=== PATIENT | female | born 2000 | race African-American/Black ===

== ENCOUNTER 2024-02-25 05:57 | Emergency (ER) | payer BC ==
[~2024-02-25] VITALS: Ht 160 cm; Wt 61.2 kg
[2024-02-25 06:17] VITALS: BP_SYST 123; PULSE 94; RESP 16; TEMP 98.3; O2SAT 98
[2024-02-25 08:45] VITALS: BP_SYST 128; PULSE 90; RESP 18; TEMP 98.6; O2SAT 98
== END 2024-02-25 08:45 | disposition home or self-care (01) ==
LOC: SED 05:57
DX: S16.1XXA Strain of muscle, fascia and tendon at neck level, initial encounter (principal); S00.83XA Contusion of other part of head, initial encounter; Y04.2XXA Assault by strike against or bumped into by another person, initial encounter; Y93.89 Activity, other specified; Y92.89 Other specified places as the place of occurrence of the external cause; Y99.8 Other external cause status
CPT/HCPCS: 72040; 99283